=== PATIENT | male | born 1945 | race Two or more races ===

== ENCOUNTER 2017-09-19 18:00 | Emergency (ER) | payer MEDICARE, OTHER ==
--- NOTE | 2017-09-19 18:24 | ER Document Report ---
ED Medical Screen (RME) - General Mode of Arrival: Ambulatory Information source: Patient TRAVEL OUTSIDE OF THE [place] IN LAST 30 DAYS: No - General Chief Complaint: Hand Pain Stated Complaint: LACERATION TO LEFT RING FINGER Time Seen by Provider: 09/19/17 18:13 Notes: 72 y.o male with a PMHx of HLD, and PTSD presents to the ED with injury to his lt 4th finger. Pt states that he was hitching trailer to car and smashed his LT 4th finger. Last tetanus unknown. Pt denies a Hx of VA, HTN, DM or Strokes. (XIOMARA ROSAS) - Related Data Allergies/Adverse Reactions: No Known Allergies Allergy (Verified 09/19/17 18:19) Past Medical History - General Information source: Patient - Social History Chew tobacco use (# tins/day): No Frequency of alcohol use: None Drug Abuse: None Renal/ Medical History: Denies: Hx Peritoneal Dialysis Past Surgical History: Reports: Hx Appendectomy - Immunizations Hx Diphtheria, Pertussis, Tetanus Vaccination: Yes Review of Systems - Review of Systems Constitutional: No symptoms reported EENT: No symptoms reported Cardiovascular: No symptoms reported Respiratory: No symptoms reported Gastrointestinal: No symptoms reported Genitourinary: No symptoms reported Male Genitourinary: No symptoms reported Musculoskeletal: See HPI, Other - injury to 4th digit, LT hand. Skin: See HPI, Other - Laceration to LT hand 4th finger Hematologic/Lymphatic: No symptoms reported Neurological/Psychological: No symptoms reported -: Yes All other systems reviewed and negative Physical Exam - Vital signs Vitals: Temp Pulse Resp BP Pulse Ox 98.0 F 42 L 16 141/76 H 96 09/19/17 18:06 09/19/17 18:06 09/19/17 18:06 09/19/17 18:06 09/19/17 18:06 - Notes Notes: Physical Exam: General: Alert, appears well. HEENT: Normocephalic. Atraumatic. PERRLA. Extraocular movements intact. Neck: Supple. Respiratory: No respiratory distress. Abdominal: Normal Inspection. No distension. Extremities: Moves all four extremities. Laceration to LT hand 4th finger. Neurological: Normal cognition. AAOx4. Normal speech. Psychological: Normal affect. Normal Mood. Skin: Laceration to LT hand 4th finger. (XIOMARA ROSAS) - Vital Signs Vital signs: Temp Pulse Resp BP Pulse Ox 98.1 F 81 14 124/50 L 98 09/19/17 21:06 09/19/17 21:06 09/19/17 21:06 09/19/17 21:06 09/19/17 21:06 Doctor's Discharge - Discharge Clinical Impression: Laceration of left ring finger, Crushing injury of left ring finger Condition: Good Disposition: HOME, SELF-CARE Additional Instructions: Please return to your primary doctor, the ED, or an urgent care in 7 days for suture removal. Return immediately if you develop spreading redness around the wound, pus from the wound, worsening pain, or a fever of >100.4. Keep the area clean and dry. Wash gently with soap and water twice daily and cover with antibiotic ointment. Scribe Documentation - Scribe Written by Marilee:: Marilee Rosado 09/19/17 1823 acting as scribe for :: Shira
--- NOTE | 2017-09-19 19:04 | RADIOLOGY REPORT (SQ) ---
EXAM DESCRIPTION: FINGER LEFT COMPLETED DATE/TIME: 09/19/2017 6:39 pm REASON FOR STUDY: left 4th digit crush injury with laceration COMPARISON: None. FINDINGS: Three views left hand and ring finger. Osteopenia and osteoarthritis. No acute fracture. No radiopaque foreign body. TECHNICAL DOCUMENTATION: JOB ID: [id number] Reading location - IP/workstation name: [email or web address]
[2017-09-19] MEDS ORDERED: CEFAZOLIN 2 GM/D5W RTU 2 GM/50 ML RTUPB IV ONE (19:13)
[2017-09-19] MEDS ORDERED: DIPH/PERTUSS(ACELL)/TETANUS VAC/PF 0.5 ML SYR (>=10YO) IM ONE (19:13)
[2017-09-19] MEDS ORDERED: LIDOCAINE 1% INJ-PF (10 MG/ML) 30 ML SDV ONE (19:14)
[2017-09-19] MEDS ORDERED: LIDOCAINE 1% INJ-PF (10 MG/ML) 30 ML SDV INJ ONE (19:17)
--- NOTE | 2017-09-19 19:18 | ER Document Report ---
ED General - General Chief Complaint: Hand Pain Stated Complaint: LACERATION TO LEFT RING FINGER Time Seen by Provider: 09/19/17 18:13 Mode of Arrival: Ambulatory Notes: Patient is a 72-year-old male without chronic medical problems who presents with a left fourth digit injury. Patient states that he smashed the finger inside of a trailer just prior to arrival. He notes an associated laceration with bleeding from the distal tip of the left fourth finger. He also notes an associated dull, throbbing, constant pain worsened by touching the area. He has not tried anything to improve the pain. He denies any history of similar injuries in the past. He has not seen his primary care doctor regarding today' s concerns. He is right-hand dominant. He denies any additional injuries or concerns. His at the bedside notes that he is bradycardic and is concerned about this. TRAVEL OUTSIDE OF THE [place] IN LAST 30 DAYS: No - Related Data Allergies/Adverse Reactions: No Known Allergies Allergy (Verified 09/19/17 18:19) Past Medical History - General Information source: Patient - Social History Smoking Status: Never Smoker Chew tobacco use (# tins/day): No Frequency of alcohol use: None Drug Abuse: None Lives with: Spouse/Significant other Family History: Reviewed & Not Pertinent Patient has suicidal ideation: No Patient has homicidal ideation: No Renal/ Medical History: Denies: Hx Peritoneal Dialysis Past Surgical History: Reports: Hx Appendectomy - Immunizations Hx Diphtheria, Pertussis, Tetanus Vaccination: Yes Review of Systems - Review of Systems Notes: Constitutional: Negative for fever. Eyes: Negative for visual changes. ENT: Negative for facial injury Cardiovascular: Negative for chest injury. Respiratory: Negative for shortness of breath. Gastrointestinal: Negative for abdominal injury. Genitourinary: Negative for genital injury Musculoskeletal: Positive for left fourth digit laceration Skin: Positive for laceration/abrasions. Neurological: Negative for head injury. Physical Exam - Vital signs Vitals: Temp Pulse Resp BP Pulse Ox 98.0 F 42 L 16 141/76 H 96 09/19/17 18:06 09/19/17 18:06 09/19/17 18:06 09/19/17 18:06 09/19/17 18:06 Interpretation: Bradycardic Notes: PHYSICAL EXAMINATION: GENERAL: Well-appearing, well-nourished and in no acute distress. HEAD: Atraumatic, normocephalic. EYES: sclera anicteric, conjunctiva are normal. ENT: Moist mucous membranes. NECK: Normal range of motion LUNGS: Normal work of breathing HEART: 2+ radial pulses bilaterally. Irregularly irregular bradycardia. EXTREMITIES: There is a flap type laceration to the volar pad of the left fourth digit. AIN, PIN, IO intact. RMU distribution of sensation intact. Full flexion and extension of the DIP, MCP and PIP against resistance in all digits of the left hand. NEUROLOGICAL: No focal neurological deficits. Moves all extremities spontaneously and on command. PSYCH: Normal mood, normal affect. SKIN: Warm, Dry, normal turgor, laceration as above Course - Re-evaluation Re-evalutation: 09/19/17 19:16 Patient presents with a crush injury to his left fourth finger with an associated volar tip laceration although no evidence of fracture on x-ray. Full flexion extension of the DIP, PIP and MCP. There is no additional areas of injuries. A digital block was placed and the wound was repaired. Tetanus was updated. At this time will discharge with return precautions and follow-up recommendations. Verbal discharge instructions given a the bedside and opportunity for questions given. Medication warnings reviewed. Patient is in agreement with this plan and has verbalized understanding of return precautions and the need for primary care follow-up in the next 24-72 hours. - Vital Signs Vital signs: Temp Pulse Resp BP Pulse Ox 98.1 F 81 14 124/50 L 98 09/19/17 21:06 09/19/17 21:06 09/19/17 21:06 09/19/17 21:06 09/19/17 21:06 - Diagnostic Test Radiology reviewed: Image reviewed, Reports reviewed Radiology results interpreted by me: 09/20/17 03:17 Left hand x-ray: No acute fracture or dislocation - EKG Interpretation by Me Additional EKG results interpreted by me: 09/20/17 03:17 Sinus rhythm. Rate 76. Intermittent PVCs. No ST elevations or depressions. QTC is 455. Procedures - Laceration/Wound Repair Left 4th digit Wound length (cm): 2 Wound's Depth, Shape: Irregular, Contused tissue Laceration pre-procedure: Sterile PPE donned Anesthetic type: 1% Lidocaine - Digital block Wound explored: Clean Irrigated w/ Saline (mLs): 300 Wound Debrided: Moderate Wound Repaired With: Sutures Suture Size/Type: 5:0, Prolene Number of Sutures: 5 Post-procedure wound care: Sterile dressing applied Post-procedure NV exam normal: Yes Complications: No Discharge - Discharge Clinical Impression: Laceration of left ring finger Qualifiers: Encounter type: initial encounter Damage to nail status: without damage Foreign body presence: without foreign body Qualified Code(s): S61.215A - Laceration without foreign body of left ring finger without damage to nail, initial encounter Crushing injury of left ring finger Qualifiers: Encounter type: initial encounter Qualified Code(s): S67.195A - Crushing injury of left ring finger, initial encounter Condition: Good Disposition: HOME, SELF-CARE Additional Instructions: Please return to your primary doctor, the ED, or an urgent care in 7 days for suture removal. Return immediately if you develop spreading redness around the wound, pus from the wound, worsening pain, or a fever of >100.4. Keep the area clean and dry. Wash gently with soap and water twice daily and cover with antibiotic ointment.
[2017-09-19 21:28] VITALS: BP 124/50
--- NOTE | 2017-09-20 09:42 | EKG REPORT ---
SEVERITY:- ABNORMAL ECG - SINUS RHYTHM VENTRICULAR BIGEMINY LEFT ANTERIOR FASCICULAR BLOCK LEFT VENTRICULAR HYPERTROPHY : Confirmed by: Brandon Hernandez 20-Sep-2017 09:41:53
== END 2017-09-19 21:35 | disposition home or self-care (01) ==
LOC: ER 18:00
PROC: 0HQGXZZ Repair Left Hand Skin, External Approach (ICD-10-PCS; principal; 2017-09-19)
DX: S61.215A Laceration without foreign body of left ring finger without damage to nail, initial encounter (principal); S67.195A Crushing injury of left ring finger, initial encounter; X58.XXXA Exposure to other specified factors, initial encounter
CPT/HCPCS: 12001; 93005; 99284; 90471; 73140; 90715; 93010; J3490

== ENCOUNTER 2017-09-21 09:02 | Observation (INO) | payer OTHER, MEDICARE ==
[2017-09-21] MEDS ORDERED: ASPIRIN 81 MG TABLET, CHEWABLE PO ONE (09:17)
[2017-09-21 09:47] LABS: ABSOLUTE EOSINOPHILS # (AUTO) 0.6 10^3/uL (0.0-0.6); ABSOLUTE LYMPHOCYTES (AUTO) 1.2 10^3/uL (0.5-4.7); ABSOLUTE MONOCYTES (AUTO) 0.8 10^3/uL (0.1-1.4); BASOPHILS % (AUTO) 0.8 % (0-2); HEMATOCRIT 41.9 % (37.9-51.0); HEMOGLOBIN 14.4 g/dL (13.5-17.0); LYMPHOCYTES % (AUTO) 21.6 % (13-45); MEAN CORPUSCULAR HEMOGLOBIN 33.5 pg (27.0-33.4); MEAN CORPUSCULAR HGB CONC 34.3 g/dL (32.0-36.0); MEAN CORPUSCULAR VOLUME 98 fl (80-97); MONOCYTES % (AUTO) 13.9 % (3-13); PLATELET COUNT 249 10^3/uL (150-450); RED BLOOD COUNT 4.28 10^6/uL (4.35-5.55); RED CELL DISTRIBUTION WIDTH 14.4 % (11.5-14.0); SEGMENTED NEUTROPHILS % (AUTO) 53.7 % (42-78); TOTAL CELLS COUNTED % (AUTO) 100 %; WHITE BLOOD COUNT 5.7 10^3/uL (4.0-10.5)
[2017-09-21] MEDS ORDERED: IPRATROPIUM/ALBUTEROL 0.5-2.5 MG/3 ML AMPUL NEB ONE (09:57)
[2017-09-21] MEDS ORDERED: NITROGLYCERIN 0.4 MG/TAB 25 TAB/BOTTLE SL ONE (09:59)
--- NOTE | 2017-09-21 10:06 | ER Document Report ---
ED General - General Chief Complaint: Chest Pain Stated Complaint: ABNORMAL LABS Time Seen by Provider: 09/21/17 09:57 Mode of Arrival: Ambulatory Information source: Patient, Relative Notes: 72-year-old male with history of diabetes presents with complaint of chest pain , shortness of breath that started 3 days prior to arrival. is at the bedside and provides the majority of the history. Patient was seen recently in the emergency department for a finger laceration. At that time his who is a retired cardiac nurse believe the patient to be in bigeminy after auscultating him. An EKG was obtained at that time and she became concerned because this is "a whole new rhythm for him". Patient admits that this made him very anxious. He states since that time he is experience chest "discomfort not pain". He is unable to describe it to me but states "it is just there". Patient has had some associated shortness of breath and dizziness. He states that intermittently he feels like he needs to take a deep breath in. He describes the dizziness as intermittent, brief and with standing. He states he "feels like I may fall over". He does have seasonal allergies and a chronic cough. Patient denies any associated headache, visual changes, diaphoresis, nausea, vomiting, decreased p.o. intake, abdominal pain, back pain, leg swelling or rash. Patient does take aspirin daily and took 81 mg prior to arrival. TRAVEL OUTSIDE OF THE [place] IN LAST 30 DAYS: No - HPI Onset: Other - 3 days prior to arrival Onset/Duration: Gradual, Intermittent Quality of pain: Achy Severity: Mild Associated symptoms: Nonproductive cough, Shortness of breath - Related Data Allergies/Adverse Reactions: No Known Allergies Allergy (Verified 09/19/17 18:19) Past Medical History - General Information source: Patient - Social History Smoking Status: Never Smoker Frequency of alcohol use: Occasional Drug Abuse: None Lives with: Spouse/Significant other Family History: Reviewed & Not Pertinent Patient has suicidal ideation: No Patient has homicidal ideation: No Endocrine Medical History: Reports: Hx Diabetes Mellitus Type 2 Renal/ Medical History: Denies: Hx Peritoneal Dialysis Past Surgical History: Reports: Hx Appendectomy - Immunizations Hx Diphtheria, Pertussis, Tetanus Vaccination: Yes Review of Systems - Review of Systems Notes: Patient denies any associated headache, visual changes, diaphoresis, nausea, vomiting, decreased p.o. intake, abdominal pain, back pain, leg swelling or rash. Physical Exam - Vital signs Vitals: Temp Pulse Resp BP Pulse Ox 97.6 F 72 16 117/45 L 98 09/21/17 09:17 09/21/17 09:17 09/21/17 09:17 09/21/17 09:17 09/21/17 09:17 Interpretation: Normal. No: Tachycardic, Hypoxic, Tachypneic, Febrile - Notes Notes: PHYSICAL EXAMINATION: GENERAL: Well-appearing, well-nourished and in no acute distress. HEAD: Atraumatic, normocephalic. EYES: Pupils equal round and reactive to light, extraocular movements intact, sclera anicteric, conjunctiva are normal. ENT: Nares patent, oropharynx clear without exudates. Moist mucous membranes. NECK: Normal range of motion, supple without lymphadenopathy LUNGS: Breath sounds clear to auscultation bilaterally and equal. No wheezes rales or rhonchi. HEART: Regular rate and rhythm without murmurs ABDOMEN: Soft, nontender, nondistended abdomen. No guarding, no rebound. No masses appreciated. Musculoskeletal: Normal range of motion, no pitting or edema. No cyanosis. NEUROLOGICAL: Cranial nerves grossly intact. Normal speech, normal gait. Normal sensory, motor exams PSYCH: Normal mood, normal affect. SKIN: Warm, Dry, normal turgor, no rashes or lesions noted. Course - Re-evaluation Re-evalutation: Laboratory 09/21/17 09/21/17 09/21/17 09:32 09:32 09:32 WBC 5.7 RBC 4.28 L Hgb 14.4 Hct 41.9 MCV 98 H MCH 33.5 H MCHC 34.3 RDW 14.4 H Plt Count 249 Seg Neutrophils % 53.7 Lymphocytes % 21.6 Monocytes % 13.9 H Eosinophils % 10.0 H Basophils % 0.8 Absolute Neutrophils 3.0 Absolute Lymphocytes 1.2 Absolute Monocytes 0.8 Absolute Eosinophils 0.6 Absolute Basophils 0.0 Sodium 148.8 H Potassium 3.9 Chloride 107 Carbon Dioxide 30 Anion Gap 12 BUN 23 H Creatinine 0.75 Est GFR ( Amer) > 60 Est GFR (Non-Af Amer) > 60 Glucose 134 H Calcium 9.9 Total Bilirubin 0.3 Direct Bilirubin 0.2 Neonat Total Bilirubin Not Reportable Neonat Direct Bilirubin Not Reportable Neonat Indirect Bili Not Reportable AST 36 ALT 43 Alkaline Phosphatase 75 Creatine Kinase 206 H CK-MB (CK-2) 1.98 Troponin I < 0.012 Total Protein 7.5 Albumin 4.4 Chest X-Ray 09/21/17 09:17 IMPRESSION: NO ACUTE RADIOGRAPHIC FINDING IN THE CHEST. 09/21/17 12:34 72-year-old male with history of diabetes presents with complaint of chest pain , shortness of breath that started 3 days prior to arrival. is at the bedside and provides the majority of the history. Patient was seen recently in the emergency department for a finger laceration. At that time his who is a retired cardiac nurse believe the patient to be in bigeminy after auscultating him. An EKG was obtained at that time and she became concerned because this is "a whole new rhythm for him". Patient admits that this made him very anxious. He states since that time he is experience chest "discomfort not pain". He is unable to describe it to me but states "it is just there". Patient has had some associated shortness of breath and dizziness. Upon arrival patient was placed on a aircraft instrument mechanic and an EKG was obtained which did show him to be in sinus rhythm at a rate of 84. Patient has a mildly elevated CK. CK-MB and troponin are within normal limits. CBC shows no leukocytosis or anemia. CMP does show elevated glucose without evidence of DKA. Patient does show ventricular bigeminy and a left anterior fascicular block. patient was administered aspirin, nitro. On reevaluation patient is still resting comfortably. is insistent upon admission although the patient is reluctant. Patient will be admitted to the hospitalist. - Vital Signs Vital signs: Temp Pulse Resp BP Pulse Ox 97.6 F 72 29 H 115/75 98 09/21/17 09:17 09/21/17 09:17 09/21/17 11:01 09/21/17 11:01 09/21/17 11:01 - Laboratory Result Diagrams: 09/21/17 09:32 09/21/17 09:32 Laboratory results interpreted by me: 09/21/17 09/21/17 09:32 09:32 RBC 4.28 L MCV 98 H MCH 33.5 H RDW 14.4 H Monocytes % 13.9 H Eosinophils % 10.0 H Sodium 148.8 H BUN 23 H Glucose 134 H Creatine Kinase 206 H - Diagnostic Test Radiology reviewed: Image reviewed, Reports reviewed - EKG Interpretation by Me EKG shows normal: Sinus rhythm Rate: Normal - Ventricular bigeminy
[2017-09-21 10:10] LABS: ALANINE AMINOTRANSFERASE 43 U/L (21-72); ALBUMIN 4.4 g/dL (3.5-5.0); ALKALINE PHOSPHATASE 75 U/L (38-126); ANION GAP 12 (5-19); ASPARTATE AMINO TRANSFERASE 36 U/L (17-59); BILIRUBIN,DIRECT 0.2 mg/dL (0.0-0.4); BILIRUBIN,TOTAL 0.3 mg/dL (0.2-1.3); BLOOD UREA NITROGEN 23 mg/dL (7-20); CALCIUM 9.9 mg/dL (8.4-10.2); CARBON DIOXIDE 30 mmol/L (22-30); CHLORIDE 107 mmol/L (98-107); CREATINE KINASE 206 U/L (55-170); GLUCOSE 134 mg/dL (75-110); POTASSIUM 3.9 mmol/L (3.6-5.0); SODIUM 148.8 mmol/L (137-145); TOTAL PROTEIN 7.5 g/dL (6.3-8.2)
--- NOTE | 2017-09-21 10:12 | RADIOLOGY REPORT (SQ) ---
EXAM DESCRIPTION: CHEST SINGLE VIEW COMPLETED DATE/TIME: 09/21/2017 9:57 am REASON FOR STUDY: chest pain COMPARISON: None. EXAM PARAMETERS: NUMBER OF VIEWS: One view. TECHNIQUE: Single frontal radiographic view of the chest acquired. RADIATION DOSE: NA LIMITATIONS: None. FINDINGS: LUNGS AND PLEURA: No opacities, masses or pneumothorax. No pleural effusion. MEDIASTINUM AND HILAR STRUCTURES: No masses. Contour normal. HEART AND VASCULAR STRUCTURES: Heart normal in size. Normal vasculature. BONES: No acute findings. HARDWARE: None in the chest. OTHER: No other significant finding. IMPRESSION: NO ACUTE RADIOGRAPHIC FINDING IN THE CHEST. TECHNICAL DOCUMENTATION: JOB ID: [id number] [employer]- All Rights Reserved Reading location - IP/workstation name: [email or web address]
[2017-09-21 10:21] LABS: CREATINE KINASE MB 1.98 ng/mL (<4.55)
[2017-09-21 10:22] LABS: TROPONIN I < 0.012 ng/mL
--- NOTE | 2017-09-21 13:24 | EKG REPORT ---
SEVERITY:- ABNORMAL ECG - SINUS RHYTHM VENTRICULAR BIGEMINY LEFT ANTERIOR FASCICULAR BLOCK : Confirmed by: Alejandro Nicholas MD 21-Sep-2017 13:23:14
[2017-09-21] MEDS ORDERED: NITROGLYCERIN 0.4 MG/TAB 25 TAB/BOTTLE SL PRN (13:33)
[2017-09-21] MEDS ORDERED: LORAZEPAM 0.5 MG TABLET PO ONE (20:00)
--- NOTE | 2017-09-21 21:21 | PDOC CONSULTATION ---
Consultation Consult Date: 09/21/17 Attending physician:: JEAN MORENO Consult reason:: CP History of Present Illness Admission Date/PCP: 09/21/17 14:00 ALICIA LACY MD Patient complains of: Chest pain and increased ventricular ectopy History of Present Illness: MATT MONTENEGRO is a 72 year old male with history of diabetes presents with complaint of chest pain, shortness of breath that started 3 days prior to arrival. is at the bedside and provides the majority of the history. Patient was seen recently in the emergency department for a finger laceration. At that time his who is a retired cardiac nurse believe the patient to be in bigeminy after auscultating him. An EKG was obtained at that time and she became concerned because this is "a whole new rhythm for him". Patient admits that this made him very anxious. He states since that time he is experience chest "discomfort not pain". He is unable to describe it to me but states "it is just there". Patient has had some associated shortness of breath and dizziness. He states that intermittently he feels like he needs to take a deep breath in. He describes the dizziness as intermittent, brief and with standing. He states he "feels like I may fall over". He does have seasonal allergies and a chronic cough. Patient denies any associated headache, visual changes, diaphoresis, nausea, vomiting, decreased p.o. intake, abdominal pain, back pain, leg swelling or rash. Patient does take aspirin daily and took 81 mg prior to arrival. This history was reviewed and confirmed. Patient does give history of sleep apnea syndrome but is currently compliant with CPAP therapy. Patient denied any prior history of myocardial infarction, angina. Patient does have history of sleep apnea syndrome, dyslipidemia and diabetes. Patient does physical exercise on a regular basis. Past Medical History Cardiac Medical History: Reports: Hyperlipidema Pulmonary Medical History: Reports: Pneumonia - 1965 Endocrine Medical History: Reports: Diabetes Mellitus Type 2 Past Surgical History Past Surgical History: Reports: Appendectomy Social History Information Source: Patient Lives with: Spouse/Significant other Smoking Status: Never Smoker Drugs: None - Advance Directive Resuscitation Status: Full Code Surrogate healthcare decision maker:: Patient's is the surrogate decision-maker Family History Family History: Hypertension Parental Family History Reviewed: Yes Children Family History Reviewed: Yes Sibling(s) Family History Reviewed.: Yes Medication/Allergy Home Medications: Albuterol Sulfate [Proair HFA] 2 puff IH Q4HP PRN 09/21/17 Allopurinol [Zyloprim 300 mg Tablet] 300 mg PO DAILY 09/21/17 Aspirin [Aspirin EC] 81 mg PO DAILY 09/21/17 Baclofen [Baclofen 10 mg Tablet] 10 mg PO BID 09/21/17 Bupropion HCl [Bupropion HCl Sr] 150 mg PO DAILY 09/21/17 Cetirizine HCl [Zyrtec 10 mg Tablet] 1 tab PO DAILY 09/21/17 Diclofenac Sodium [Voltaren] 1 applic TP QIDP PRN 09/21/17 Ibuprofen [Motrin 800 mg Tablet] 800 mg PO Q8HP PRN 09/21/17 Metformin HCl [Glucophage 500 mg Tablet] 500 mg PO BIDACBS 09/21/17 Sildenafil Citrate [Viagra] 100 mg PO ASDIR PRN 09/21/17 Simvastatin [Zocor 40 mg Tablet] 40 mg PO QHS 09/21/17 Zolpidem Tartrate [Ambien] 10 mg PO HSP PRN 09/21/17 Allergies/Adverse Reactions: No Known Allergies Allergy (Verified 09/19/17 18:19) Review of Systems Review of Systems: Please see history of present illness and past medical history as wall. Constitutional: No fever or chills reported. Head : No recent chronic headaches, recent head injury. Eyes: No recent eye pain, diplopia, redness, discharge, acute visual changes. Ears: No recent chronic ear pain, acute hearing loss, ear discharge. Oral cavity: No recent ulcerations, bleeding, oral cavity discomfort. Neck: No recent acute neck pain reported. Hematologic: No recent easy bruising or bleeding. Lymphatic: No recent lymph node enlargement reported. Cardiovascular system review: See history of present illness. Respiratory system review: No hemoptysis or blood clots in the lungs reported. Mild Shortness of breath on exertion Gastrointestinal system review: Negative for any recent acute hematemesis, melena. Genitourinary system review: No recent acute or chronic hematuria, flank pain, UTI etc. reported. Skin system review: Negative for any recent abnormal bruising, no rash, no pruritus reported. Neurologic: No prior history of strokes, mini strokes, seizure disorder. History of sleep apnea Psychologic: No history of major psychosis or major depression reported. Musculoskeletal: Minor aches and pains reported. No acute joint swelling reported. Endocrine: No recent polyuria, polydipsia, recent heat or cold intolerance. Physical Exam Vital Signs: Temp Pulse Resp BP Pulse Ox 97.6 F 94 27 H 102/55 L 98 09/21/17 09:17 09/21/17 18:58 09/21/17 18:04 09/21/17 18:04 09/21/17 18:04 Exam: GENERAL: well-nourished and in no acute distress. Alert and oriented x3 HEAD: Atraumatic, normocephalic. EYES: Pupils equal round and reactive to light, extraocular movements intact, sclera anicteric, conjunctiva are normal. ENT: TMs normal, nares patent, oropharynx clear without exudates. Moist mucous membranes. No oral ulcerations or bleeding gums noted NECK: supple without lymphadenopathy. Trachea is central. No cervical or axillary lymphadenopathy noted. Carotids are 2+, JVD WNL LUNGS: Respiration seems nonlabored, no significant accessory muscle action noted. Breath sounds clear to auscultation bilaterally and equal noted. No wheezes rales or rhonchi noted. No significant dullness noted on percussion. CHEST: Palpation of the chest wall shows no significant chest wall tenderness. HEART: [place] [employer], No PSH, 1/6 GERHARD aortic area, 1/6 arevalo systolic murmur mitral area, no rubs, no gallops. ABDOMEN: Soft, no significant tenderness appreciated, normoactive bowel sounds. No guarding, no rebound. No rigidity noted . No masses appreciated. EXTREMITIES: Pedal pulses are 1-2+, no calf tenderness noted. No clubbing or cyanosis. negative pedal edema noted NEUROLOGICAL: Focused neurological exam showed no significant neurologic deficit. Normal speech, no focal weakness appreciated. PSYCH: Normal mood, normal affect. Judgment and insight within normal limits. SKIN: No significant ecchymosis, skin is noted to be warm. MUSCULOSKELETAL EXAM: No significant acute joint swelling noted. Results Laboratory Results: 09/21/17 19:34 Troponin I < 0.012 EKG Comments: Sinus rhythm, frequent ventricular ectopy but no acute ST-T wave changes noted. Impressions: Chest X-Ray 09/21/17 09:17 IMPRESSION: NO ACUTE RADIOGRAPHIC FINDING IN THE CHEST. Assessment & Plan - Diagnosis (1) Ventricular dysrhythmia Is this a current diagnosis for this admission?: Yes (2) Chest pain Qualifiers: Chest pain type: unspecified Qualified Code(s): R07.9 - Chest pain, unspecified Is this a current diagnosis for this admission?: Yes (3) Diabetes Qualifiers: Diabetes mellitus type: type 2 (4) Hyperlipidemia Qualifiers: Hyperlipidemia type: unspecified Qualified Code(s): E78.5 - Hyperlipidemia , unspecified Is this a current diagnosis for this admission?: Yes (5) Sleep apnea syndrome Qualifiers: Sleep apnea type: unspecified type Qualified Code(s): G47.30 - Sleep apnea , unspecified Is this a current diagnosis for this admission?: Yes (6) Anxiety Is this a current diagnosis for this admission?: Yes - Notes Notes: Ventricular dysrhythmia: Currently no sustained ventricular dysrhythmia noted. Patient just has frequent ventricular ectopy and rare couplets. Recommend maintaining electrolytes within normal limits. Proper treatment of sleep apnea will also reduce ventricular ectopy. Patient may benefit from beta-mariela therapy. For risk assessment, will schedule patient for a 2D echocardiogram and a nuclear stress test. Chest pain: Patient has significant cardiac risk factors. A nuclear stress test will be scheduled. At this point agree with antiplatelet therapy, statins. Will consider starting beta-mariela after stress test is completed. Diabetes: Currently is stable. Continue with current management plans. Hyperlipidemia: Continue with statin therapy. Sleep apnea syndrome: Discussed proper management of sleep apnea can reduce cardiovascular event risk and also help with better control of diabetes and hypertension. Anxiety disorder: Patient seems to have this. May consider SSRI I agent. - Time Time Spent: 30 to 50 Minutes Medications reviewed and adjusted accordingly: Yes
[2017-09-21] MEDS ORDERED: ATORVASTATIN CALCIUM 40 MG TABLET PO SCH (22:00)
[2017-09-21] MEDS ORDERED: ATORVASTATIN CALCIUM 20 MG TABLET PO SCH (22:00)
[2017-09-21] MEDS ORDERED: IBUPROFEN 800 MG TABLET PO PRN (23:04)
[2017-09-21] MEDS ORDERED: ALBUTEROL SULFATE HFA (90 MCG/PUFF) 8 GM MDI (1 MDI/ER DISP) IH PRN (23:04)
[2017-09-21] MEDS ORDERED: DEXTROSE 40% GEL 15 GM TUBE PO PRN ×2 (23:06)
[2017-09-21] MEDS ORDERED: DEXTROSE 50%-WATER 25 GM/50 ML DISP.SYRIN IV PRN ×2 (23:06)
[2017-09-21] MEDS ORDERED: INSULIN LISPRO 100 UNIT/ML 3 ML VIAL SUBCUT PRN (23:06)
[2017-09-21] MEDS ORDERED: GLUCAGON,HUMAN RECOMB 1 MG INJ IM PRN (23:06)
--- NOTE | 2017-09-21 23:36 | PDOC H&P ---
History of Present Illness Admission Date/PCP: 09/21/17 14:00 ALICIA LACY MD Patient complains of: chest pain History of Present Illness: MATT MONTENEGRO is a 72 year old male who presents to the ED with chest ' discomfort,' SOB and dizziness. The patient was in the ED 48 hrs ago for a finger laceration. During triage, his heart rate was was in the 40s. 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 Over the course of the following days, the patient complained of dizziness and mild SOB. The patient decided to return to the ED at the request of his . The patient states that he feels a ' discomfort' in his chest, he vehemently denies pain. He states this discomfort has intermittently been going on for years. It is midsternal, nonradiating, and not associated with any aggravating factors (exercise, seasonal allergies, etc. ) The patient states he took 1600mg Motrin to relieve his symptoms, but it offered no relief. The symptoms have been so severe, that it keeps the patient up at night. The reports that, lately, the patient has bee sleeping in their recliner, something that is very unusual for him. PMH includes DM, JAXON, HLD, gout, chronic back pain, PTSD EKG shows bigeminy, no evidence of acute infarct or ischemia. Troponin <0.012. The patient received 325mg ASA and an albuterol nebulizer treatment while in the emergency department. Upon assessment, the patient is resting comfortably in bed on room air. The patient denies chest discomfort, SOB, dizziness, fever or chills. He is able to answer all questions appropriately, and can speak in full sentences without pause. The patient does not appear to be in any distress. Given his age and concerning nature of his symptoms, plan to admit the patient to the hospitalist service and consult cardiology. Past Medical History Cardiac Medical History: Reports: Hyperlipidema Pulmonary Medical History: Reports: Pneumonia - 1964 Endocrine Medical History: Reports: Diabetes Mellitus Type 2 Malignancy Medical History: Reports: None Musculoskeltal Medical History: Reports: Gout Psychiatric Medical History: Reports: Post Traumatic Stress Disorder Past Surgical History Past Surgical History: Reports: Appendectomy, Other - 1965 [facility] Social History Information Source: Patient Lives with: Family, Spouse/Significant other Smoking Status: Never Smoker Frequency of Alcohol Use: Rare Hx Recreational Drug Use: No Drugs: None Hx Prescription Drug Abuse: No - Advance Directive Resuscitation Status: Full Code Family History Family History: Reviewed & Not Pertinent Parental Family History Reviewed: Yes - Father - brain aneurysm; Mother - DM Children Family History Reviewed: Yes Sibling(s) Family History Reviewed.: Yes Medication/Allergy Home Medications: Albuterol Sulfate [Proair HFA] 2 puff IH Q4HP PRN 09/21/17 Allopurinol [Zyloprim 300 mg Tablet] 300 mg PO DAILY 09/21/17 Aspirin [Aspirin EC] 81 mg PO DAILY 09/21/17 Baclofen [Baclofen 10 mg Tablet] 10 mg PO BID 09/21/17 Bupropion HCl [Bupropion HCl Sr] 150 mg PO DAILY 09/21/17 Cetirizine HCl [Zyrtec 10 mg Tablet] 1 tab PO DAILY 09/21/17 Diclofenac Sodium [Voltaren] 1 applic TP QIDP PRN 09/21/17 Ibuprofen [Motrin 800 mg Tablet] 800 mg PO Q8HP PRN 09/21/17 Metformin HCl [Glucophage 500 mg Tablet] 500 mg PO BIDACBS 09/21/17 Sildenafil Citrate [Viagra] 100 mg PO ASDIR PRN 09/21/17 Simvastatin [Zocor 40 mg Tablet] 40 mg PO QHS 09/21/17 Zolpidem Tartrate [Ambien] 10 mg PO HSP PRN 09/21/17 Allergies/Adverse Reactions: No Known Allergies Allergy (Verified 09/19/17 18:19) Review of Systems Review of Systems: ROS per HPI. Pertinent positives listed below. Constitutional: PRESENT: headache(s) - intermittent Cardiovascular: PRESENT: chest pain, dyspnea on exertion. ABSENT: edema Respiratory: PRESENT: dyspnea Musculoskeletal: PRESENT: back pain Allergic/Immunologic: PRESENT: seasonal rhinorrhea Physical Exam Vital Signs: Temp Pulse Resp BP Pulse Ox 98.4 F 90 15 118/64 97 09/21/17 21:00 09/21/17 21:00 09/21/17 21:00 09/21/17 21:00 09/21/17 21:00 General appearance: PRESENT: no acute distress Eye exam: PRESENT: PERRLA Mouth exam: PRESENT: moist Neck exam: PRESENT: full ROM Respiratory exam: PRESENT: clear to auscultation mary, symmetrical, unlabored Cardiovascular exam: PRESENT: irregular rhythm Pulses: PRESENT: normal radial pulses, normal dorsalis pedis pul Rectal exam: PRESENT: deferred Extremities exam: PRESENT: full ROM Musculoskeletal exam: PRESENT: ambulatory, full ROM Neurological exam: PRESENT: alert, awake, oriented to person, oriented to place , oriented to time, oriented to situation Psychiatric exam: PRESENT: appropriate affect Skin exam: PRESENT: dry, intact, normal color Results Laboratory Results: 09/21/17 19:34 Troponin I < 0.012 Impressions: Chest X-Ray 09/21/17 09:17 IMPRESSION: NO ACUTE RADIOGRAPHIC FINDING IN THE CHEST. Status: Imported from PACS Assessment & Plan - Diagnosis (1) Chest pain Qualifiers: Chest pain type: unspecified Qualified Code(s): R07.9 - Chest pain, unspecified Is this a current diagnosis for this admission?: Yes Plan: The patient endorses chest discomfort for 'years' Intermittent. non-radiating. now associated with new onset dizziness. EKG shows bigimeny, a new arrythmia for this patient, no acute infarct or ischemia Troponin<0.012, continue to trend x 2 Cardiology consulted, plan for ECHO and stress test within the next 24-48 hours ASA and statin therapy Treatment for atypical presentation of chest pain: buspar for anxiety, motrin for muscular pain, PPI for GERD (2) Diabetes Qualifiers: Diabetes mellitus type: type 2 Is this a current diagnosis for this admission?: Yes Plan: Patient endorses a history of DM Will hold glucophage for now Plan for Humalog sliding scale, will add lantus if needed (3) HTN (hypertension) Qualifiers: Hypertension type: essential hypertension Qualified Code(s): I10 - Essential (primary) hypertension Is this a current diagnosis for this admission?: Yes Plan: Patient endorses history of HTN Will resume home antihypertensives (4) Anxiety Is this a current diagnosis for this admission?: Yes Plan: Patient endorses hx of anxiety. States he currently takes PO buspar at home, will resume his home dose. - Time Critical Time spent with patient: 15-24 minutes Medications reviewed and adjusted accordingly: Yes Anticipated discharge: Home - Inpatient Certification Based on my medical assessment, after consideration of the patient's comorbidities, presenting symptoms, or acuity I expect that the services needed warrant INPATIENT care.: Yes I certify that my determination is in accordance with my understanding of Medicare's requirements for reasonable and necessary INPATIENT services [42 CFR 412.3e].: Yes Medical Necessity: Risk of Complication if Not Cared For in Hospital - Plan Summary Plan Summary: Plan to admit the patient under observation status for a chest pain workup. Cardiology consulted.
[2017-09-22 07:31] LABS: ABSOLUTE BASOPHILS # (AUTO) 0.1 10^3/uL (0.0-0.2); ABSOLUTE EOSINOPHILS # (AUTO) 0.5 10^3/uL (0.0-0.6); ABSOLUTE LYMPHOCYTES (AUTO) 1.2 10^3/uL (0.5-4.7); ABSOLUTE MONOCYTES (AUTO) 0.8 10^3/uL (0.1-1.4); ABSOLUTE NEUT (AUTO) 3.5 10^3/uL (1.7-8.2); EOSINOPHILS % (AUTO) 8.2 % (0-6); HEMATOCRIT 38.7 % (37.9-51.0); HEMOGLOBIN 13.1 g/dL (13.5-17.0); LYMPHOCYTES % (AUTO) 20.2 % (13-45); MEAN CORPUSCULAR HGB CONC 33.9 g/dL (32.0-36.0); MEAN CORPUSCULAR VOLUME 97 fl (80-97); MONOCYTES % (AUTO) 12.6 % (3-13); PLATELET COUNT 223 10^3/uL (150-450); RED BLOOD COUNT 3.97 10^6/uL (4.35-5.55); RED CELL DISTRIBUTION WIDTH 13.9 % (11.5-14.0); TOTAL CELLS COUNTED % (AUTO) 100 %
[2017-09-22 07:41] LABS: ANION GAP 10 (5-19); BLOOD UREA NITROGEN 22 mg/dL (7-20); CALCIUM 9.2 mg/dL (8.4-10.2); CARBON DIOXIDE 28 mmol/L (22-30); CHLORIDE 106 mmol/L (98-107); CHOLESTEROL 149.35 mg/dL (0-200); GLUCOSE 138 mg/dL (75-110); PHOSPHORUS 3.4 mg/dL (2.5-4.5); POTASSIUM 4.1 mmol/L (3.6-5.0); SODIUM 143.9 mmol/L (137-145); TRIGLYCERIDES 176 mg/dL (<150)
[2017-09-22] MEDS ORDERED: ALBUTEROL SULFATE HFA (90 MCG/PUFF) 200 PUFF/8.5 GM MDI IH PRN (07:48)
[2017-09-22 07:52] LABS: DIRECT LDL 73 mg/dL (<100)
--- NOTE | 2017-09-22 07:53 | EKG REPORT ---
SEVERITY:- ABNORMAL ECG - SINUS RHYTHM LEFT ANTERIOR FASCICULAR BLOCK EARLY PRECORDIAL TRANSITION, CONSIDER OLD TRUEPOST TX, CLINICAL CORRELATION NEEDED. : Confirmed by: Alejandro Nicholas MD 22-Sep-2017 07:53:31
[2017-09-22 07:54] LABS: VLDL CHOLESTEROL 35.2 mg/dL (10-31)
[2017-09-22] MEDS ORDERED: BUPROPION HCL 75 MG TABLET PO SCH (10:00)
[2017-09-22] MEDS ORDERED: ALLOPURINOL 300 MG TABLET PO SCH (10:00)
[2017-09-22] MEDS ORDERED: ASPIRIN 81 MG TABLET, CHEWABLE PO SCH (10:00)
--- NOTE | 2017-09-22 12:36 | DRAGON STRESS TEST REPORT ---
EXERCISE CARDIOLITE STRESS TEST USING SINGLE PHOTON EMMISION COMPUTERIZED TOMOGRAPHIC. DATE OF PROCEDURE: September 22, 2017 INDICATION : Chest pain and increased ventricular ectopy CARDIAC RISK FACTORS: Diabetes, hypertension, sleep apnea syndrome, dyslipidemia RESTING EKG: Sinus rhythm without any baseline ST segment changes REASON FOR TERMINATION: Dyspnea and fatigue. PROCEDURE REPORT: Baseline heart rate 90 beats per minute with blood pressure of 127/77. Patient had no significant complaints. Patient was exercised on a standard Ry protocol. Patient exercised for a total of 7 minutes and 15 seconds. Peak heart rate 142 which is 95 % of predicted maximum. Peak blood pressure 155/57. Double product was noted to be 22.0 kcal. No significant EKG changes were noted. Patient had no significant complaints during the procedure or postprocedure. IMPRESSION EXERCISE PART: Average. No significant EKG ST segment changes with exercise. NUCLEAR DATA: At rest the patient was given 12.87 millicuries of technetium 99 sestamibi injected intravenously. As per protocol rest gated SPECT images were obtained. Subsequently the stress dose of 37.3 millicuries of technetium 99 sestamibi was injected intravenously at peak exercise and patient continued to exercise for 1 to 2 additional minute. As per protocol stress gated images were obtained. NUCLEAR INTERPRETATION: Both raw and processed data were used for interpretation. Visual, qualitative, computer-generated quantitative data was used. There was good myocardial uptake of technetium compound. Motion artifact and soft tissue attenuations were noted. Increased visceral uptake was noted. No definitive areas of transient perfusion defect noted. No definitive areas of fixed perfusion defect or scars noted. EKG gated imaging showed LV EF at 47 %, rest and stress gated EF similar visually. T. I D. ratio was 0.86. Lung heart ratio noted to be within normal limits 0.33. No significant extracardiac and abnormal radiotracer activities were noted. RV free wall uptake was noted to be WNL. IMPRESSION: Also refer to comments under nuclear interpretation. Also test results needs to be interpreted in the context of pretest probability. 1. There is no definitive scintigraphic evidence of exercise induced myocardial ischemia at achieved double product. 2. There is no definitive scintigraphic evidence of myocardial infarction/scar. 3. EKG gated imaging shows left ejection fraction of approximately 47 %. 4. Patient noted to have average exercise tolerance. Patient had adequate heart rate response. BP response mildly suboptimal. No significant EKG changes were noted with exercise at adequate double product. RECOMMENDATIONS: Aggressive risk factor modification, medical therapy. Further evaluation may be needed if patient continues with significant symptoms or has other high risk features. Clinical correlation with echocardiogram derived ejection fraction. Consider cardiology consultation and or follow-up if clinically indicated. I AM AVAILABLE FOR CARDIOLOGY CONSULTATION AND FOLLOWUP IF REQUESTED BY PMD Brandon Hernandez M.D., [facility] HOSPITALPal Stable Helper sock ironer, Board certified in cardiovascular diseases, Nuclear cardiology, Echocardiography Cardiac CT and cardiac MRI Ph. [phone] [facility]
[2017-09-22 12:44] VITALS: BP 106/79
--- NOTE | 2017-09-22 12:47 | XCELERA REPORT ---
[address] [address] Transthoracic Echocardiogram Report Name: MATT MONTENEGRO Age: 72 yrs Gender: Male : 1945 Patient Status: Inpatient Patient Location: [address] [place] [address] Study Date: 09/22/2017 10:27 AM Height: 65 in Weight: 175 lb BSA: 1.9 m2 Procedure: A complete two-dimensional transthoracic echocardiogram was performed (2D, M-mode, spectral and color flow Doppler). The study was technically adequate with some images being suboptimal in quality. Reason For Study: chest pain Ordering Physician: JANES BALLARD Performed By: Neida Alcala Interpretation Summary The left ventricular ejection fraction is normal. Doppler measurements suggest impaired left ventricular relaxation, which is associated with grade I/IV or mild diastolic dysfunction There is normal left ventricular wall thickness. The left ventricle is grossly normal size. Wall motion cannot be accurately commented on, but no definite regional wall motion abnormalities noted. The right ventricular systolic function is normal. The right ventricle is grossly normal size. The left atrial size is normal. The right atrium is normal in size There is a mild amount of mitral regurgitation There is no mitral valve stenosis. There is no aortic valve stenosis No aortic regurgitation is present. There is a trace to mild amount of tricuspid regurgitation There is mild pulmonary hypertension by echo Right ventricular systolic pressure is estimated to be elevated at 30- 40mmHg. The aortic root is not well visualized but is probably normal size. The inferior vena cava was not well visualized There is no pericardial effusion. MMode/2D Measurements & Calculations RVDd: 3.2 cm LVIDd: 5.7 cm FS: 36.9 % Ao root diam: 3.1 cm IVSd: 0.65 cm LVIDs: 3.6 cm EDV(Teich): 162.3 ml LVPWd: 0.73 cm ESV(Teich): 55.1 ml Ao root area: 7.7 cm2 EF(Teich): 66.1 % Doppler Measurements & Calculations MV E max katlyn: MV dec slope: Ao V2 max: LV V1 max P.6 cm/sec 158.1 cm/sec 3.4 mmHg MV A max katlyn: 330.0 cm/sec2 Ao max PG: LV V1 max: 82.0 cm/sec MV dec time: 10.0 mmHg 92.3 cm/sec MV E/A: 0.52 0.13 sec PA V2 max: TR max katlyn: 97.2 cm/sec 266.0 cm/sec PA max PG: TR max P.4 mmHg 3.8 mmHg Left Ventricle The left ventricle is grossly normal size. There is normal left ventricular wall thickness. The left ventricular ejection fraction is normal. Doppler measurements suggest impaired left ventricular relaxation, which is associated with grade I/IV or mild diastolic dysfunction. Wall motion cannot be accurately commented on, but no definite regional wall motion abnormalities noted. Right Ventricle The right ventricle is grossly normal size. There is normal right ventricular wall thickness. The right ventricular systolic function is normal. Atria The right atrium is normal in size. The left atrial size is normal. Interarterial septum not well visualized and not well dopplered. Cannot comment on ASD/PFO presence. Mitral Valve The mitral valve is grossly normal. There is no mitral valve stenosis. There is a mild amount of mitral regurgitation. Aortic Valve The aortic valve is grossly normal. There is no aortic valve stenosis. No aortic regurgitation is present. Tricuspid Valve The tricuspid valve is not well visualized secondary to technical limitations. There is no tricuspid stenosis. There is a trace to mild amount of tricuspid regurgitation. There is mild pulmonary hypertension by echo. Right ventricular systolic pressure is estimated to be elevated at 30-40mmHg. Pulmonic Valve The pulmonic valve is not well visualized. Great Vessels The aortic root is not well visualized but is probably normal size. The inferior vena cava was not well visualized. Effusions There is no pericardial effusion. : JANES BALLARD > Brandon Hernandez
--- NOTE | 2017-09-22 13:28 | PDOC PROGRESS REPORT ---
Subjective Progress Note for:: 09/22/17 Subjective:: Patient seems to be doing better with gradual improvement. Pt is denying any chest arm or neck discomfort. Patient denying any PND, orthopnea. Patient denied any sustained palpitations, dizziness, syncope, near syncope. Patient denying any fever chills. Patient denying any other significant discomfort. Patient is maintaining sinus rhythm. Review of systems: Rest review of systems negative. Medications: Medications have been reviewed. Reason For Visit: CHEST PAIN Physical Exam Vital Signs: Temp Pulse Resp BP Pulse Ox 98.0 F 88 19 106/79 98 09/22/17 11:16 09/22/17 11:16 09/22/17 11:16 09/22/17 11:16 09/22/17 11:16 Intake & Output 09/21/17 09/22/17 09/23/17 06:59 06:59 06:59 Weight 79.4 kg Exam: GENERAL: well-nourished and in no acute distress. Alert and oriented x3 HEAD: Atraumatic, normocephalic. EYES: Pupils equal round and reactive to light, extraocular movements intact, sclera anicteric, conjunctiva are normal. ENT: TMs normal, nares patent, oropharynx clear without exudates. Moist mucous membranes. No oral ulcerations or bleeding gums noted NECK: supple without lymphadenopathy. Trachea is central. No cervical or axillary lymphadenopathy noted. Carotids are 2+, JVD WNL LUNGS: Respiration seems nonlabored, no significant accessory muscle action noted. Breath sounds clear to auscultation bilaterally and equal noted. No wheezes rales or rhonchi noted. No significant dullness noted on percussion. CHEST: Palpation of the chest wall shows no significant chest wall tenderness. HEART: Anna [employer], No PSH, 1/6 GERHARD aortic area, 1/6 arevalo systolic murmur mitral area, no rubs, no gallops. ABDOMEN: Soft, no significant tenderness appreciated, normoactive bowel sounds. No guarding, no rebound. No rigidity noted . No masses appreciated. EXTREMITIES: Pedal pulses are 1-2+, no calf tenderness noted. No clubbing or cyanosis. negative pedal edema noted NEUROLOGICAL: Focused neurological exam showed no significant neurologic deficit. Normal speech, no focal weakness appreciated. PSYCH: Normal mood, normal affect. Judgment and insight within normal limits. SKIN: No significant ecchymosis, skin is noted to be warm. MUSCULOSKELETAL EXAM: No significant acute joint swelling noted. Results Laboratory Results: 09/22/17 06:48 09/22/17 06:48 09/21/17 09/22/17 09/22/17 19:34 06:48 06:48 WBC 6.0 RBC 3.97 L Hgb 13.1 L Hct 38.7 MCV 97 MCH 33.0 MCHC 33.9 RDW 13.9 Plt Count 223 Seg Neutrophils % 58.0 Lymphocytes % 20.2 Monocytes % 12.6 Eosinophils % 8.2 H Basophils % 1.0 Absolute Neutrophils 3.5 Absolute Lymphocytes 1.2 Absolute Monocytes 0.8 Absolute Eosinophils 0.5 Absolute Basophils 0.1 Sodium 143.9 Potassium 4.1 Chloride 106 Carbon Dioxide 28 Anion Gap 10 BUN 22 H Creatinine 0.72 Est GFR ( Amer) > 60 Est GFR (Non-Af Amer) > 60 Glucose 138 H Calcium 9.2 Phosphorus 3.4 Magnesium 1.9 Triglycerides 176 H Cholesterol 149.35 LDL Cholesterol Direct 73 VLDL Cholesterol 35.2 H HDL Cholesterol 38 L 09/21/17 19:34 Troponin I < 0.012 EKG Comments: Shows sinus rhythm with frequent ventricular ectopy. Impressions: Chest X-Ray 09/21/17 09:17 IMPRESSION: NO ACUTE RADIOGRAPHIC FINDING IN THE CHEST. Assessment & Plan - Diagnosis (1) Ventricular dysrhythmia Is this a current diagnosis for this admission?: Yes (2) Chest pain Qualifiers: Chest pain type: unspecified Qualified Code(s): R07.9 - Chest pain, unspecified Is this a current diagnosis for this admission?: Yes (3) Diabetes Qualifiers: Diabetes mellitus type: type 2 Is this a current diagnosis for this admission?: Yes (4) Hyperlipidemia Qualifiers: Hyperlipidemia type: unspecified Qualified Code(s): E78.5 - Hyperlipidemia , unspecified Is this a current diagnosis for this admission?: Yes (5) Sleep apnea syndrome Qualifiers: Sleep apnea type: unspecified type Qualified Code(s): G47.30 - Sleep apnea , unspecified Is this a current diagnosis for this admission?: Yes (6) Anxiety Is this a current diagnosis for this admission?: Yes - Notes Notes: Nuclear stress test was negative for any exercise-induced ischemia at adequate double product. 2D echo shows normal LVEF with mild mitral regurgitation. Ventricular dysrhythmia: Currently no sustained ventricular dysrhythmia noted. Patient just has frequent ventricular ectopy and rare couplets. Recommend maintaining electrolytes within normal limits. Proper treatment of sleep apnea will also reduce ventricular ectopy. Patient may benefit from beta-mariela therapy. However because of perceived sexual side effect, patient and his did not want to go on beta-mariela therapy. Chest pain: Patient has significant cardiac risk factors. Nuclear stress test was negative for exercise-induced ischemia at adequate double product. Exercise tolerance was noted to be above average for patient's age. Diabetes: Currently is stable. Continue with current management plans. Hyperlipidemia: Continue with statin therapy. Sleep apnea syndrome: Discussed proper management of sleep apnea can reduce cardiovascular event risk and also help with better control of diabetes and hypertension. Anxiety disorder: Patient seems to have this. May consider SSRI agent. - Time Time with patient: Greater than 35 minutes - In the morning nuclear stress test procedure, risks benefits, alternatives were discussed. Patient seen during the stress test. Patient also seen after stress test when results were discussed with the patient in detail. Patient's questions were answered. Nuclear stress test results were discussed with the patient. Patient was informed that no definitive evidence of pharmacologic stress-induced ischemia noted. No definite fixed defects were noted. Patient informed that occasionally significant single vessel disease or balanced ischemia could be missed. However based on the current study results, would recommend aggressive risk factor modification and medical therapy. It may also be worthwhile to consider evaluation or empiric management of other causes of chest pain. Should no other cause be found and if persistent in having chest pain, then cardiac catheterization should be considered. Right now, recommendations are for aggressive risk factor modification and medical management. Medications reviewed and adjusted accordingly: Yes
--- NOTE | 2017-09-22 14:33 | PDOC DISCHARGE SUMMARY ---
General - Admit/Disc Date/PCP Admission Date/Primary Care Provider: 09/21/17 14:00 UZMA SILVERMAN MD Discharge Date: 09/22/17 - Discharge Diagnosis (1) Anxiety Is this a current diagnosis for this admission?: Yes (2) Chest pain Is this a current diagnosis for this admission?: Yes (3) Diabetes Is this a current diagnosis for this admission?: Yes (4) Hyperlipidemia Is this a current diagnosis for this admission?: Yes (5) Hypertension Is this a current diagnosis for this admission?: Yes (6) Ventricular dysrhythmia Is this a current diagnosis for this admission?: Yes - Additional Information Resuscitation Status: Full Code Discharge Diet: Cardiac, Diabetic Discharge Activity: Activity As Tolerated, Balance Activity w/Rest Home Medications: Albuterol Sulfate [Proair HFA] 2 puff IH Q4HP PRN 09/21/17 Allopurinol [Zyloprim 300 mg Tablet] 300 mg PO DAILY 09/21/17 Aspirin [Aspirin EC] 81 mg PO DAILY 09/21/17 Baclofen [Baclofen 10 mg Tablet] 10 mg PO BID 09/21/17 Bupropion HCl [Bupropion HCl Sr] 150 mg PO DAILY 09/21/17 Cetirizine HCl [Zyrtec 10 mg Tablet] 1 tab PO DAILY 09/21/17 Diclofenac Sodium [Voltaren] 1 applic TP QIDP PRN 09/21/17 Ibuprofen [Motrin 800 mg Tablet] 800 mg PO Q8HP PRN 09/21/17 Metformin HCl [Glucophage 500 mg Tablet] 500 mg PO BIDACBS 09/21/17 Simvastatin [Zocor 40 mg Tablet] 40 mg PO QHS 09/21/17 Zolpidem Tartrate [Ambien] 10 mg PO HSP PRN 09/21/17 History of Present Illness History of Present Illness: Per H&P by Dr. Mercedes: MATT MONTENEGRO is a 72 year old male who presents to the ED with chest 'discomfort,' SOB and dizziness. The patient was in the ED 48 hrs ago for a finger laceration. During triage, his heart rate was was in the 40s. 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 Over the course of the following days, the patient complained of dizziness and mild SOB. The patient decided to return to the ED at the request of his . The patient states that he feels a ' discomfort' in his chest, he vehemently denies pain. He states this discomfort has intermittently been going on for years. It is midsternal, nonradiating, and not associated with any aggravating factors (exercise, seasonal allergies, etc. ) The patient states he took 1600mg Motrin to relieve his symptoms, but it offered no relief. The symptoms have been so severe, that it keeps the patient up at night. The reports that, lately, the patient has bee sleeping in their recliner, something that is very unusual for him. PMH includes DM, JAXON, HLD, gout, chronic back pain, PTSD EKG shows bigeminy, no evidence of acute infarct or ischemia. Troponin <0.012. The patient received 325mg ASA and an albuterol nebulizer treatment while in the emergency department. Upon assessment, the patient is resting comfortably in bed on room air. The patient denies chest discomfort, SOB, dizziness, fever or chills. He is able to answer all questions appropriately, and can speak in full sentences without pause. The patient does not appear to be in any distress. Given his age and concerning nature of his symptoms, plan to admit the patient to the hospitalist service and consult cardiology. Hospital Course Hospital Course: The patient was admitted with a complaint of intermittent chest discomfort has been present for years and now associated with dizziness. EKG revealed bigeminy without acute infarct or ischemia. Serial troponins were negative. Echocardiogram revealed a normal LVEF, mild diastolic dysfunction, mild mitral regurgitation, trace tricuspid regurgitation , and mild pulmonary hypertension. Cardiolite stress test was normal; no evidence of exercise-induced myocardial ischemia, infarction/scar. Cardiology was consulted and recommended the patient initiate beta-mariela therapy to reduce frequency of ventricular ectopy. The patient and declined beta-mariela therapy secondary to perceived sexual side effects. At time of discharge, the patient is in stable condition, pain-free, maintaining oxygen saturations on room air. He is recommended to continue daily aspirin and statin therapy. He is advised to follow-up with his primary care provider within 1 week. Physical Exam Vital Signs: Temp Pulse Resp BP Pulse Ox 98.0 F 88 19 106/79 98 09/22/17 11:16 09/22/17 11:16 09/22/17 11:16 09/22/17 11:16 09/22/17 11:16 Intake & Output 09/21/17 09/22/17 09/23/17 06:59 06:59 06:59 Weight 79.4 kg General appearance: PRESENT: no acute distress, well-developed, well-nourished, other - Overweight Head exam: PRESENT: atraumatic, normocephalic Eye exam: PRESENT: conjunctiva pink, EOMI, PERRLA. ABSENT: scleral icterus Ear exam: PRESENT: normal external ear exam Mouth exam: PRESENT: moist, tongue midline Neck exam: ABSENT: carotid bruit, JVD, lymphadenopathy, thyromegaly Respiratory exam: PRESENT: clear to auscultation mary, symmetrical, unlabored. ABSENT: rales, rhonchi, wheezes Cardiovascular exam: PRESENT: RRR, systolic murmur. ABSENT: diastolic murmur, rubs Pulses: PRESENT: normal dorsalis pedis pul Vascular exam: PRESENT: normal capillary refill GI/Abdominal exam: PRESENT: normal bowel sounds, soft. ABSENT: distended, guarding, mass, organolmegaly, rebound, tenderness Rectal exam: PRESENT: deferred Extremities exam: PRESENT: full ROM. ABSENT: calf tenderness, clubbing, pedal edema Neurological exam: PRESENT: alert, awake, oriented to person, oriented to place , oriented to time, oriented to situation, CN II-XII grossly intact. ABSENT: motor sensory deficit Psychiatric exam: PRESENT: appropriate affect, normal mood. ABSENT: homicidal ideation, suicidal ideation Skin exam: PRESENT: dry, intact, warm. ABSENT: cyanosis, rash Results Laboratory Results: 09/22/17 06:48 09/22/17 06:48 09/21/17 09/22/17 09/22/17 19:34 06:48 06:48 WBC 6.0 RBC 3.97 L Hgb 13.1 L Hct 38.7 MCV 97 MCH 33.0 MCHC 33.9 RDW 13.9 Plt Count 223 Seg Neutrophils % 58.0 Lymphocytes % 20.2 Monocytes % 12.6 Eosinophils % 8.2 H Basophils % 1.0 Absolute Neutrophils 3.5 Absolute Lymphocytes 1.2 Absolute Monocytes 0.8 Absolute Eosinophils 0.5 Absolute Basophils 0.1 Sodium 143.9 Potassium 4.1 Chloride 106 Carbon Dioxide 28 Anion Gap 10 BUN 22 H Creatinine 0.72 Est GFR ( Amer) > 60 Est GFR (Non-Af Amer) > 60 Glucose 138 H Calcium 9.2 Phosphorus 3.4 Magnesium 1.9 Triglycerides 176 H Cholesterol 149.35 LDL Cholesterol Direct 73 VLDL Cholesterol 35.2 H HDL Cholesterol 38 L 09/21/17 19:34 Troponin I < 0.012 Impressions: Chest X-Ray 09/21/17 09:17 IMPRESSION: NO ACUTE RADIOGRAPHIC FINDING IN THE CHEST. Qualifiers - * PATEINT BEING DISCHARGED WITH ANY OF THE FOLLOWING DIAGNOSIS?: No Plan Discharge Plan: Discharge to home with self-care. Follow-up with primary care provider within 1 week. Follow-up with cardiology within 4-6 weeks. Return to emergency department for chest pain symptoms. Time Spent: Less than 30 Minutes
== END 2017-09-22 15:19 | disposition home or self-care (01) ==
LOC: ER 09:02 → EH 14:00 → 5 18:33
PROVIDERS: ADMIT Internal Medicine; ATTEND Internal Medicine
DX: F41.9 Anxiety disorder, unspecified (principal); R07.89 Other chest pain; E11.65 Type 2 diabetes mellitus with hyperglycemia; E78.5 Hyperlipidemia, unspecified; I10 Essential (primary) hypertension; I49.8 Other specified cardiac arrhythmias; M10.9 Gout, unspecified; I27.20 Pulmonary hypertension, unspecified; I08.1 Rheumatic disorders of both mitral and tricuspid valves; R05 Cough; J30.2 Other seasonal allergic rhinitis; G47.33 Obstructive sleep apnea (adult) (pediatric); G89.29 Other chronic pain; M54.9 Dorsalgia, unspecified; R51 Headache; M79.1 Myalgia; K21.9 Gastro-esophageal reflux disease without esophagitis; I44.4 Left anterior fascicular block; Z79.899 Other long term (current) drug therapy; Z87.01 Personal history of pneumonia (recurrent); Z90.49 Acquired absence of other specified parts of digestive tract; Z82.49 Family history of ischemic heart disease and other diseases of the circulatory system; Z79.84 Long term (current) use of oral hypoglycemic drugs; Z79.82 Long term (current) use of aspirin
CPT/HCPCS: 93005 ×2; 94640; 99285; 36415 ×2; 82553; 82962; 82550; 83735; 84100; 85025 ×2; 80048; 80053; 84484; 80061; 93306; 93017; 71045; 78452; 93010 ×2; G0378 ×3; A9500; J3490 ×2; J7620; Q9969

== ENCOUNTER 2019-02-03 14:31 | Emergency (ER) | payer MEDICARE, OTHER ==
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
[2019-02-03] MEDS ORDERED: ONDANSETRON HCL INJ/PF 4 MG/2 ML SDV IV ONE (14:41)
[2019-02-03] MEDS ORDERED: KETOROLAC TROMETHAMINE INJ/PF 30 MG/1 ML SDV IV ONE (14:41)
[2019-02-03] MEDS ORDERED: NORMAL SALINE 1000 ML 1,000 ML IV ONE (14:43)
[2019-02-03 15:07] LABS: ABSOLUTE BASOPHILS # (AUTO) 0.1 10^3/uL (0.0-0.2); ABSOLUTE EOSINOPHILS # (AUTO) 0.1 10^3/uL (0.0-0.6); ABSOLUTE LYMPHOCYTES (AUTO) 1.1 10^3/uL (0.5-4.7); ABSOLUTE MONOCYTES (AUTO) 0.8 10^3/uL (0.1-1.4); ABSOLUTE NEUT (AUTO) 6.7 10^3/uL (1.7-8.2); BASOPHILS % (AUTO) 0.6 % (0-2); EOSINOPHILS % (AUTO) 1.7 % (0-6); HEMATOCRIT 37.9 % (37.9-51.0); HEMOGLOBIN 12.9 g/dL (13.5-17.0); LYMPHOCYTES % (AUTO) 12.7 % (13-45); MEAN CORPUSCULAR HEMOGLOBIN 33.3 pg (27.0-33.4); MEAN CORPUSCULAR HGB CONC 34.1 g/dL (32.0-36.0); MEAN CORPUSCULAR VOLUME 98 fl (80-97); MONOCYTES % (AUTO) 9.3 % (3-13); PLATELET COUNT 231 10^3/uL (150-450); RED BLOOD COUNT 3.88 10^6/uL (4.35-5.55); RED CELL DISTRIBUTION WIDTH 14.3 % (11.5-14.0); SEGMENTED NEUTROPHILS % (AUTO) 75.7 % (42-78); TOTAL CELLS COUNTED % (AUTO) 100 %; WHITE BLOOD COUNT 8.8 10^3/uL (4.0-10.5)
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
[2019-02-03 15:29] LABS: ALBUMIN 4.6 g/dL (3.5-5.0); ALKALINE PHOSPHATASE 86 U/L (38-126); ANION GAP 10 (5-19); ASPARTATE AMINO TRANSFERASE 44 U/L (17-59); BILIRUBIN,DIRECT 0.3 mg/dL (0.0-0.4); BILIRUBIN,TOTAL 0.5 mg/dL (0.2-1.3); BLOOD UREA NITROGEN 27 mg/dL (7-20); CALCIUM 9.7 mg/dL (8.4-10.2); CARBON DIOXIDE 30 mmol/L (22-30); CHLORIDE 101 mmol/L (98-107); GLUCOSE 139 mg/dL (75-110); POTASSIUM 4.2 mmol/L (3.6-5.0); TOTAL PROTEIN 7.9 g/dL (6.3-8.2)
--- NOTE | 2019-02-03 16:18 | RADIOLOGY REPORT (SQ) ---
EXAM DESCRIPTION: CT ABD/PELVIS NO ORAL OR IV COMPLETED DATE/TIME: 02/03/2019 3:48 pm REASON FOR STUDY: right flank pain COMPARISON: None. TECHNIQUE: CT scan of the abdomen and pelvis performed without intravenous or oral contrast. Images reviewed with lung, soft tissue, and bone windows. Reconstructed coronal and sagittal MPR images revi ewed. All images stored on PACS. All CT scanners at this facility use dose modulation, iterative reconstruction, and/or weight based d osing when appropriate to reduce radiation dose to as low as reasonably achievable (ALARA). [facility]: Dose Right [facility]: CareDose [facility]: Dose Right [facility]: Teradose 4D [facility]: Smart payasUgym RADIATION DOSE: CT Rad equipment meets quality standard of care and radiation dose reduction techniq ues were employed. CTDIvol: 5.3 mGy. DLP: 276 mGy-cm.mGy. LIMITATIONS: None. FINDINGS: LOWER CHEST: No significant findings. No nodules or infiltrates. NON-CONTRASTED LIVER, SPLEEN, ADRENALS: Evaluation limited by lack of IV contrast. No identified sign ificant masses. PANCREAS: No masses. No peripancreatic inflammatory changes. GALLBLADDER: No identified stones by CT criteria. No inflammatory changes to suggest cholecystitis. RIGHT KIDNEY AND URETER: No suspicious masses. Assessment limited by lack of IV contrast. Intrarena l calculi image 33 series 102. 7 mm calculus in the proximal right ureter. 6 x 10 mm calculus in th e mid right ureter. Hydronephrosis. LEFT KIDNEY AND URETER: No suspicious masses. Assessment limited by lack of IV contrast. No signifi cant calcifications. No hydronephrosis or hydroureter. AORTA AND RETROPERITONEUM: No aneurysm. No retroperitoneal masses or adenopathy. BOWEL AND PERITONEAL CAVITY: Mild diverticulosis. No bowel mass. APPENDIX: Surgically absent. PELVIS, BLADDER, AND ABDOMINAL WALL:No abnormal masses. No free fluid. Bladder normal. BONES: No significant findings. OTHER: No other significant finding. IMPRESSION: There is right hydronephrosis secondary to 2 large ureteral calculi. Mild diverticulosi s coli. Intrarenal calculi in the right kidney. COMMENT: Quality ID # [id number]: Final reports with documentation of one or more dose reduction techniques (e.g., Automated exposure control, adjustment of the mA and/or kV according to patient size, use of iterative reconstruction technique) TECHNICAL DOCUMENTATION: JOB ID: [id number] [employer]- All Rights Reserved Reading location - IP/workstation name: [email or web address]
[2019-02-03 16:30] LABS: APPEARANCE,URINE CLEAR; BILIRUBIN,URINE NEGATIVE (NEGATIVE); COLOR,URINE YELLOW; GLUCOSE, URINE NEGATIVE (NEGATIVE); KETONES,URINE NEGATIVE (NEGATIVE); LEUKOCYTE ESTERASE,URINE NEGATIVE (NEGATIVE); NITRITE,URINE NEGATIVE (NEGATIVE); PROTEIN,URINE 30 mg/dL (NEGATIVE); URINE SPECIFIC GRAVITY 1.024; UROBILINOGEN,URINE NEGATIVE mg/dL (<2.0)
[2019-02-03] MEDS ORDERED: HYDROCODONE/ACETAMINOPHEN 5-325 MG (6 TAB/ER DISP) PO PRN (16:50)
[2019-02-03 17:04] VITALS: BP 137/69
== END 2019-02-03 17:03 | disposition home or self-care (01) ==
LOC: ER 14:31
DX: N20.1 Calculus of ureter (principal); R10.31 Right lower quadrant pain; E11.9 Type 2 diabetes mellitus without complications
CPT/HCPCS: 99284; 96361; 96374; 96375; 36415; 83690; 85025; 80053; 81001; 74176; J1885; J2405; J7030; A9270

== ENCOUNTER 2019-07-13 12:55 | Day surgery (SDC) | payer MEDICARE, OTHER ==
[~2019-07-13 12:55] MED LIST: BALANCED SALT IRRIG SOLN COMB2 15 ML BOTTLE ONE; CYCLOPENTOLATE 0.2%/PHENYLEPHRINE 1% OPH SOLN 2 ML OD PRN; KETOROLAC TROMETHAMINE 0.45% 4 DROP/0.4 ML DROPERETTE OD PRN; LIDOCAINE 1%/EPINEPHRINE INJ 20 ML VIAL ONE; MITOMYCIN OPH SOLN 0.02% 2 ML OD PRN; POVIDONE-IODINE 5% OPH PREP SOLN 30 ML ONE; TETRACAINE HCL 0.5% OPH SOLN 4 ML ONE; TOBRAMYCIN SULFATE/DEXAMETH OPH OINTMENT 3.5 GM ONE; TROPICAMIDE 1% OPH SOLN 15 ML OD PRN
[2019-07-13] MEDS: BESIFLOXACIN HCL 0.6% OPH SUSP 5 ML BOTTLE OD PRN ×2 (14:08→15:18)
[2019-07-13] MEDS: TETRACAINE HCL 0.5% OPH SOLN 4 ML OD PRN ×3 (14:08→14:45)
[2019-07-13] MEDS ORDERED: MIDAZOLAM 2 MG/2 ML INJ ONE (14:17)
[2019-07-13] MEDS ORDERED: FENTANYL CITRATE INJ/PF 100 MCG/2 ML AMPUL ONE (14:43)
[2019-07-13] MEDS ORDERED: BALANCED SALT IRRIG SOLN COMB2 15 ML BOTTLE ONE (15:03)
== END 2019-07-13 15:53 | disposition home or self-care (01) ==
LOC: SC 12:55
PROVIDERS: ATTEND Ophthalmology
DX: H11.001 Unspecified pterygium of right eye (principal); Z79.899 Other long term (current) drug therapy; Z79.51 Long term (current) use of inhaled steroids; Z79.82 Long term (current) use of aspirin; E78.00 Pure hypercholesterolemia, unspecified; E11.9 Type 2 diabetes mellitus without complications; J45.909 Unspecified asthma, uncomplicated
CPT/HCPCS: 82962; 00140; 65420; J2250; J3490 ×4; A9270 ×2; J3010; J9280; 140

== ENCOUNTER 2019-08-02 11:14 | Emergency (ER) | payer MEDICARE, OTHER ==
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
[2019-08-02 11:59] LABS: ABSOLUTE BASOPHILS # (AUTO) 0.1 10^3/uL (0.0-0.2); ABSOLUTE EOSINOPHILS # (AUTO) 0.2 10^3/uL (0.0-0.6); ABSOLUTE LYMPHOCYTES (AUTO) 0.7 10^3/uL (0.5-4.7); ABSOLUTE NEUT (AUTO) 10.3 10^3/uL (1.7-8.2); BASOPHILS % (AUTO) 0.6 % (0-2); EOSINOPHILS % (AUTO) 1.3 % (0-6); HEMATOCRIT 36.4 % (37.9-51.0); HEMOGLOBIN 12.7 g/dL (13.5-17.0); LYMPHOCYTES % (AUTO) 5.8 % (13-45); MEAN CORPUSCULAR HEMOGLOBIN 33.2 pg (27.0-33.4); MEAN CORPUSCULAR HGB CONC 34.8 g/dL (32.0-36.0); MEAN CORPUSCULAR VOLUME 95 fl (80-97); PLATELET COUNT 232 10^3/uL (150-450); RED BLOOD COUNT 3.81 10^6/uL (4.35-5.55); RED CELL DISTRIBUTION WIDTH 14.6 % (11.5-14.0); SEGMENTED NEUTROPHILS % (AUTO) 84.3 % (42-78); TOTAL CELLS COUNTED % (AUTO) 100 %; WHITE BLOOD COUNT 12.2 10^3/uL (4.0-10.5)
[2019-08-02 12:24] LABS: ALBUMIN 4.2 g/dL (3.5-5.0); ALKALINE PHOSPHATASE 87 U/L (38-126); ANION GAP 13 (5-19); ASPARTATE AMINO TRANSFERASE 31 U/L (17-59); BILIRUBIN,DIRECT 0.3 mg/dL (0.0-0.4); BILIRUBIN,TOTAL 0.9 mg/dL (0.2-1.3); BLOOD UREA NITROGEN 18 mg/dL (7-20); CALCIUM 9.3 mg/dL (8.4-10.2); CARBON DIOXIDE 26 mmol/L (22-30); CHLORIDE 100 mmol/L (98-107); GLUCOSE 145 mg/dL (75-110); POTASSIUM 4.1 mmol/L (3.6-5.0); TOTAL PROTEIN 7.8 g/dL (6.3-8.2)
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
[2019-08-02 12:53] LABS: APPEARANCE,URINE CLOUDY; BILIRUBIN,URINE NEGATIVE (NEGATIVE); GLUCOSE, URINE NEGATIVE (NEGATIVE); KETONES,URINE TRACE mg/dL (NEGATIVE); LEUKOCYTE ESTERASE,URINE LARGE (NEGATIVE); NITRITE,URINE POSITIVE (NEGATIVE); PROTEIN,URINE 100 mg/dL (NEGATIVE); URINE SPECIFIC GRAVITY 1.021; UROBILINOGEN,URINE NEGATIVE mg/dL (<2.0)
[2019-08-02 12:54] LABS: COLOR,URINE YELLOW
[2019-08-02] MEDS ORDERED: CEFTRIAXONE 1 GM/D5W RTU 1 GM/50 ML RTUPB IV ONE (13:30)
[2019-08-02] MEDS ORDERED: LIDOCAINE 2% URO-JET 5 ML KIT MM ONE (13:54)
--- NOTE | 2019-08-02 15:08 | RADIOLOGY REPORT (SQ) ---
EXAM DESCRIPTION: CT ABD/PELVIS NO ORAL OR IV COMPLETED DATE/TIME: 08/02/2019 2:52 pm REASON FOR STUDY: r/o septic/obstruct. stone, pyuria, francois in place COMPARISON: None. TECHNIQUE: CT scan of the abdomen and pelvis performed without intravenous or oral contrast. Images reviewed with lung, soft tissue, and bone windows. Reconstructed coronal and sagittal MPR images revi ewed. All images stored on PACS. All CT scanners at this facility use dose modulation, iterative reconstruction, and/or weight based d osing when appropriate to reduce radiation dose to as low as reasonably achievable (ALARA). [facility]: Dose Right [facility]: CareDose [facility]: Dose Right [facility]: Teradose 4D [facility]: Smart Central Test RADIATION DOSE: CT Rad equipment meets quality standard of care and radiation dose reduction techniq ues were employed. CTDIvol: 6.4 mGy. DLP: 384 mGy-cm.mGy. LIMITATIONS: None. FINDINGS: LOWER CHEST: No significant findings. No nodules or infiltrates. NON-CONTRASTED LIVER, SPLEEN, ADRENALS: Evaluation limited by lack of IV contrast. No identified sign ificant masses. PANCREAS: No masses. No peripancreatic inflammatory changes. GALLBLADDER: No identified stones by CT criteria. No inflammatory changes to suggest cholecystitis. RIGHT KIDNEY AND URETER: No suspicious masses. Assessment limited by lack of IV contrast. 8 mm nono bstructing intrarenal calculus. No hydronephrosis or hydroureter. LEFT KIDNEY AND URETER: No suspicious masses. Assessment limited by lack of IV contrast. Tiny nonob structing intrarenal calculus. No hydronephrosis or hydroureter. AORTA AND RETROPERITONEUM: No aneurysm. No retroperitoneal masses or adenopathy. BOWEL AND PERITONEAL CAVITY: Mild diverticulosis with no associated inflammation. Moderate amount of retained stool. No obvious bowel mass. APPENDIX: Surgically absent. PELVIS, BLADDER, AND ABDOMINAL WALL:No abnormal masses. No free fluid. Bladder normal. BONES: No significant findings. OTHER: No other significant finding. IMPRESSION: 1. There is an intrarenal calculus on each side. There is no evidence of pyelonephriti s, given the limitations of a noncontrast study. There is no ureteral stone or obstruction. 2. Mild diverticulosis coli. COMMENT: Quality ID # [id number]: Final reports with documentation of one or more dose reduction techniques (e.g., Automated exposure control, adjustment of the mA and/or kV according to patient size, use of iterative reconstruction technique) TECHNICAL DOCUMENTATION: JOB ID: [id number] 2010 [employer]- All Rights Reserved Reading location - IP/workstation name: [email or web address]
[2019-08-02] MEDS ORDERED: HYDROCODONE/ACETAMINOPHEN 5-325 MG (6 TAB/ER DISP) PO PRN (15:13)
[2019-08-02] MEDS ORDERED: LIDOCAINE 2% VISCOUS SOLN 15 ML UDCUP PO ONE (15:17)
[2019-08-02 15:55] VITALS: BP 118/69
== END 2019-08-02 15:55 | disposition home or self-care (01) ==
LOC: ER 11:14
DX: T83.518A Infection and inflammatory reaction due to other urinary catheter, initial encounter (principal); N39.0 Urinary tract infection, site not specified; Y84.6 Urinary catheterization as the cause of abnormal reaction of the patient, or of later complication, without mention of misadventure at the time of the procedure; R50.9 Fever, unspecified; E78.00 Pure hypercholesterolemia, unspecified; E11.9 Type 2 diabetes mellitus without complications
CPT/HCPCS: 99284; 96365; 36415; 87040; 87086; 87070; 87205; 85025; 87088; 80053; 81001; 87186; 74176; J3490; J0696; A9270 ×2

== ENCOUNTER 2020-01-11 11:23 | Day surgery (SDC) | payer MEDICARE, OTHER ==
[~2020-01-11 11:23] MED LIST changes: -BALANCED SALT IRRIG SOLN COMB2 15 ML BOTTLE ONE; -CYCLOPENTOLATE 0.2%/PHENYLEPHRINE 1% OPH SOLN 2 ML OD PRN; -KETOROLAC TROMETHAMINE 0.45% 4 DROP/0.4 ML DROPERETTE OD PRN; +KETOROLAC TROMETHAMINE 0.45% 4 DROP/0.4 ML DROPERETTE OS PRN; -LIDOCAINE 1%/EPINEPHRINE INJ 20 ML VIAL ONE; -MITOMYCIN OPH SOLN 0.02% 2 ML OD PRN; -POVIDONE-IODINE 5% OPH PREP SOLN 30 ML ONE; -TETRACAINE HCL 0.5% OPH SOLN 4 ML ONE; -TOBRAMYCIN SULFATE/DEXAMETH OPH OINTMENT 3.5 GM ONE; -TROPICAMIDE 1% OPH SOLN 15 ML OD PRN
[2020-01-11] MEDS: CYCLOPENTOLATE 0.2%/PHENYLEPHRINE 1% OPH SOLN 2 ML OS PRN ×3 (12:20→12:40)
[2020-01-11] MEDS: TROPICAMIDE 1% OPH SOLN 15 ML OS PRN ×3 (12:20→12:40)
[2020-01-11] MEDS: TETRACAINE HCL 0.5% OPH SOLN 4 ML OS PRN ×4 (12:20→12:46)
[2020-01-11] MEDS: BESIFLOXACIN HCL 0.6% OPH SUSP 5 ML BOTTLE OS PRN ×4 (12:20→13:03)
[2020-01-11] MEDS ORDERED: FENTANYL CITRATE INJ/PF 100 MCG/2 ML AMPUL ONE (12:35)
[2020-01-11] MEDS ORDERED: MIDAZOLAM 2 MG/2 ML INJ ONE (12:35)
[2020-01-11] MEDS: EPINEPHRINE INJ/PF 1 MG/1 ML AMPULE ONE ×2 (12:54)
[2020-01-11] MEDS: LIDOCAINE 1%/PHENYLEPHRINE 1.5% 0.8 ML SYRINGE ONE ×2 (12:54)
[2020-01-11] MEDS: CHONDR SU A NA/HYALUR INTRAOC KIT (SURGICARE) ONE ×2 (12:54)
[2020-01-11] MEDS: DORZOLAMIDE HCL 2%/TIMOLOL MALEAT 0.5% OPH SOLN 10 ML OS PRN ×2 (13:03)
--- NOTE | 2020-01-11 13:11 | Operative Report ---
Operative Report-[facility] Operative Report: DATE OF SURGERY: January 11, 2020 PREOPERATIVE DIAGNOSIS: NUCLEAR CATARACT, LEFT EYE. POSTOPERATIVE DIAGNOSIS: NUCLEAR CATARACT, LEFT EYE. PROCEDURE PERFORMED: PHACOEMULSIFICATION WITH POSTERIOR CHAMBER INTRAOCULAR LENS IMPLANT, LEFT EYE. SURGEON: Andres Palm DO MEDICATIONS AND ANESTHESIA: Versed: IV Versed Tetracaine drops: 1 to 2 drops given as needed COMPLICATION: [None] INDICATIONS FOR SURGERY: Medical necessity: Best corrected visual acuity worse than 20/40 secondary to cataracts with impairment of ability to carry out needs or desired activities, blurred vision, visual distortion, reduced contrast sensitivity and/or glare with association functional impairment and supporting documentation/testing, and cataracts causing symptomatic impairment of visual functions not corrected with tolerable changes in glasses or contact lenses interfering with activities of daily life. PROCEDURE: Consent: The risks, benefits and alternatives of this procedures was discussed with the patient. The patient read and signed the consent forms, was identified and was seated in the exam chair. IOL: MX 60 E 19.5 IOL Diopters: [] Phacoemulsification with posterior chamber intraocular lens implant: The face was prepped with 5% povidone iodine solution, and a few drops of 5% povidone iodine solution was instilled into the inferior fornix. A non-fenestrated drape was placed over the eye and the lids were parted with the speculum. A paracentesis was made with a 15 degree blade, and 1% lidocaine MPF followed by viscoelastic was injected into the anterior chamber. A 2.4 mm metal micro- keratome was used to create a temporal clear corneal incision. A circular anterior capsulorrhexis was created, followed by hydro-dissection and hydro- delineation. The phacoemulsification hand piece was inserted and the nucleus was removed with the Phaco chop technique. The irrigation-aspiration hand piece was used to remove the residual cortex, and vacuum the posterior capsule. The capsular bag was inflated and viscoelastic and the above-mentioned IOL was injected into the eye with care to insert both leaning and trailing haptics in the capsular bag. The irrigation/aspiration hand piece was reinserted to remove residual viscoelastic from the capsular bag and anterior chamber. The corneal incision was hydrated, and anterior chamber was inflated with sterile BSS via the paracentesis site, and found to be watertight. Postop medication:1 drop of prednisolone into operative by followed by 1 drop of Cosopt into operative eye followed by 1 drop of Besivance intraoperative by Other: []
== END 2020-01-11 13:41 | disposition home or self-care (01) ==
LOC: SC 11:23
PROVIDERS: ATTEND Ophthalmology
DX: H25.12 Age-related nuclear cataract, left eye (principal); E11.9 Type 2 diabetes mellitus without complications; E78.00 Pure hypercholesterolemia, unspecified; I49.9 Cardiac arrhythmia, unspecified; I10 Essential (primary) hypertension; Z79.899 Other long term (current) drug therapy; Z79.82 Long term (current) use of aspirin; Z79.84 Long term (current) use of oral hypoglycemic drugs; G47.33 Obstructive sleep apnea (adult) (pediatric)
CPT/HCPCS: 66984; 82962; V2632; J2250; J3490 ×3; A9270; J0171; J3010; 142

== ENCOUNTER 2020-01-25 09:20 | Day surgery (SDC) | payer MEDICARE, OTHER ==
[~2020-01-25 09:20] MED LIST changes: +CHONDR SU A NA/HYALUR INTRAOC KIT (SURGICARE) ONE; +EPINEPHRINE INJ/PF 1 MG/1 ML AMPULE ONE; +KETOROLAC TROMETHAMINE 0.45% 4 DROP/0.4 ML DROPERETTE OD PRN; -KETOROLAC TROMETHAMINE 0.45% 4 DROP/0.4 ML DROPERETTE OS PRN; +LIDOCAINE 1%/PHENYLEPHRINE 1.5% 0.8 ML SYRINGE ONE
[2020-01-25] MEDS ORDERED: FENTANYL CITRATE INJ/PF 100 MCG/2 ML AMPUL ONE ×2 (09:29→09:57)
[2020-01-25] MEDS ORDERED: ONDANSETRON HCL INJ/PF 4 MG/2 ML SDV ONE (09:29)
[2020-01-25] MEDS ORDERED: MIDAZOLAM 2 MG/2 ML INJ ONE ×2 (09:29→09:57)
[2020-01-25] MEDS: TROPICAMIDE 1% OPH SOLN 15 ML OD PRN ×3 (09:35→09:55)
[2020-01-25] MEDS: TETRACAINE HCL 0.5% OPH SOLN 4 ML OD PRN ×3 (09:35→10:05)
[2020-01-25] MEDS: BESIFLOXACIN HCL 0.6% OPH SUSP 5 ML BOTTLE OD PRN ×4 (09:35→10:25)
[2020-01-25] MEDS: CYCLOPENTOLATE 0.2%/PHENYLEPHRINE 1% OPH SOLN 2 ML OD PRN ×3 (09:35→09:55)
[2020-01-25] MEDS: DORZOLAMIDE HCL 2%/TIMOLOL MALEAT 0.5% OPH SOLN 10 ML OD PRN ×2 (10:25)
[2020-01-25] MEDS: PREDNISOLONE ACETATE 1% OPH SUSP 5 ML OD PRN ×2 (10:25)
--- NOTE | 2020-01-25 11:22 | Operative Report ---
Operative Report-[facility] Operative Report: DATE OF SURGERY: January 25, 2020 PREOPERATIVE DIAGNOSIS: NUCLEAR CATARACT, RIGHT EYE. POSTOPERATIVE DIAGNOSIS: NUCLEAR CATARACT, RIGHT EYE. PROCEDURE PERFORMED: PHACOEMULSIFICATION WITH POSTERIOR CHAMBER INTRAOCULAR LENS IMPLANT, RIGHT EYE. SURGEON: Andres Palm DO MEDICATIONS AND ANESTHESIA: Versed: IV Versed Tetracaine drops: 1 to 2 drops given as needed COMPLICATION: None INDICATIONS FOR SURGERY: Medical necessity: Best corrected visual acuity worse than 20/40 secondary to cataracts with impairment of ability to carry out needs or desired activities, blurred vision, visual distortion, reduced contrast sensitivity and/or glare with association functional impairment and supporting documentation/testing, and cataracts causing symptomatic impairment of visual functions not corrected with tolerable changes in glasses or contact lenses interfering with activities of daily life. PROCEDURE: Consent: The risks, benefits and alternatives of this procedures was discussed with the patient. The patient read and signed the consent forms, was identified and was seated in the exam chair. IOL: MX 60 E 21.0 IOL Diopters: Phacoemulsification with posterior chamber intraocular lens implant: The face was prepped with 5% povidone iodine solution, and a few drops of 5% povidone iodine solution was instilled into the inferior fornix. A non-fenestrated drape was placed over the eye and the lids were parted with the speculum. A paracentesis was made with a 15 degree blade, and 1% lidocaine MPF followed by viscoelastic was injected into the anterior chamber. A 2.4 mm metal micro- keratome was used to create a temporal clear corneal incision. A circular anterior capsulorrhexis was created, followed by hydro-dissection and hydro- delineation. The phacoemulsification hand piece was inserted and the nucleus was removed with the Phaco chop technique. The irrigation-aspiration hand piece was used to remove the residual cortex, and vacuum the posterior capsule. The capsular bag was inflated and viscoelastic and the above-mentioned IOL was injected into the eye with care to insert both leaning and trailing haptics in the capsular bag. The irrigation/aspiration hand piece was reinserted to remove residual viscoelastic from the capsular bag and anterior chamber. The corneal incision was hydrated, and anterior chamber was inflated with sterile BSS via the paracentesis site, and found to be watertight. Postop medication: 1 drop of prednisolone into operative by followed by 1 drop of Cosopt into operative eye followed by 1 drop of Besivance intraoperative by other:
== END 2020-01-25 10:59 | disposition home or self-care (01) ==
LOC: SC 09:20
PROVIDERS: ATTEND Ophthalmology
DX: H25.11 Age-related nuclear cataract, right eye (principal); Z98.42 Cataract extraction status, left eye; G47.33 Obstructive sleep apnea (adult) (pediatric); I49.9 Cardiac arrhythmia, unspecified; E78.00 Pure hypercholesterolemia, unspecified; E11.9 Type 2 diabetes mellitus without complications; Z79.899 Other long term (current) drug therapy; Z79.84 Long term (current) use of oral hypoglycemic drugs; I10 Essential (primary) hypertension
CPT/HCPCS: 66984; 82962; V2632; J2250; J3490 ×3; A9270; J0171; J3010; 142; J2405